=== PATIENT | female | born 1960 | race Caucasian/White ===

== ENCOUNTER → 2023-08-04 08:08 | Outpatient (REF) | payer BC, SELFPAY | LOC: RAD 08:08 | PROVIDERS: ATTENDING PHYSICIAN Family Medicine | DX: Z91.89 Other specified personal risk factors, not elsewhere classified (principal); N18.31 Chronic kidney disease, stage 3a; Z87.81 Personal history of (healed) traumatic fracture | CPT/HCPCS: 77080 ==

== ENCOUNTER → 2024-02-29 14:08 | Outpatient (REF) | payer BC, SELFPAY | LOC: WDC 14:08 | PROVIDERS: ATTENDING PHYSICIAN Family Medicine | DX: Z12.31 Encounter for screening mammogram for malignant neoplasm of breast (principal) | CPT/HCPCS: 77063; 77067 ==

== ENCOUNTER 2024-08-16 20:17 | Inpatient (IN) | payer BC, SELFPAY ==
[2024-08-16] VITALS (7 sets, daily range): BP systolic 123–163; BP diastolic 78–93; BMI 30.3
[2024-08-16 17:10] LABS: % Basophils 0.3 % (0-2); % Eosinophils 1.3 % (0-6); % Immature Granulocytes 0.2 % (0-0.5); % Lymphocytes 18.3 % (20.5-51.1); % Monocytes 6.2 % (1.7-9.3); % Neutrophils 73.7 % (42.2-75.2); Absolute Eosinophils 0.1 10^3/uL (0-0.7); Absolute Lymphocytes 1.9 10^3/uL (1.2-3.4); Absolute Monocytes 0.6 10^3/uL (0.1-0.6); Absolute Neutrophils 7.5 10^3/uL (1.4-6.5); Hematocrit 39.1 % (37.0-47.0); Hemoglobin 12.6 g/dL (12.0-16.0); Mean Corp Hgb Conc. 32.2 g/dL (33.0-37.0); Mean Corpuscular Volume 86.9 fL (81.0-99.0); Mean Platelet Volume 11.4 fL (7.4-10.4); Nucleated Red Blood Cells % 0 %; Platelet Count 201 10^3/uL (130-400); Red Cell Dist. Width 13.9 % (11.5-14.5); White Blood Cell Count 10.2 10^3/uL (4.8-10.8)
[2024-08-16 17:21] LABS: PT 13.5 Sec (11.4-14.6)
[2024-08-16 17:22] LABS: APTT 28.9 Sec (23.4-35.0)
[2024-08-16 17:32] LABS: ALT (SGPT) 18 U/L (0-35); AST (SGOT) 21 U/L (14-36); Albumin 4.5 g/dl (3.5-5.0); Alkaline Phosphatase 138 U/L (38-126); Blood Urea Nitrogen 15 mg/dl (7-17); Calcium 9.6 mg/dl (8.4-10.2); Carbon Dioxide 27 mmol/L (22-30); Chloride 104 mmol/L (98-107); Glucose 142 mg/dl (70-99); Potassium 4.1 mmol/L (3.5-5.1); Sodium 143 mmol/L (135-145); Total Bilirubin 0.5 mg/dl (0.2-1.3); Total Protein 7.8 g/dl (6.3-8.2); eGFR 56.46
[2024-08-16 17:38] LABS: Troponin I < 0.012 ng/ml
--- NOTE | 2024-08-16 19:04 | ED.GENMED ---
History of Present Illness
General
Chief Complaint: Abnormal Lab Value
Source: patient
Exam Limitations: none
Time Seen by Provider: 08/16/24 18:27
Nursing documentation reviewed up to this point in time: agreed with
History of Present Illness
History of Present Illness:
Patient sent to ED by PCP to r/o PE. She states she had right sided chest pain approx 2 weeks ago that lasted for 2 days and then resolved. A few days ago she woke with sharp right sided chest pain. Has had right chest discomfort since. States
she went for a run yesterday and was unable to run at all due to pain. She was seen by PCP today for routine visit and was advised tocome to ED. No prior history of DVT or PE. No known risk factors for PE/DVT
Past History
Past History
ED Past Medical History: HTN, Hypercholesterolemia and Psychiatric (Bipolar disorder)
ED Past Surgical History: Orthopedic
Social History
Tobacco: Non-smoker
Alcohol: None
Drug: None
Personal:
Review of Systems
Review of Systems
Allergies reviewed?: Yes
All Other Systems: ROS reviewed and negative except as documented in HPI and ROS
Constitutional: Reports no symptoms
EENT: Reports no symptoms
Respiratory: Reports other (pain with deep breathing)
Cardiac: Reports other (Right sided chest pain)
ABD/GI: Reports no symptoms
: Reports no symptoms
Musculoskeletal: Reports no symptoms
Skin: Reports no symptoms
Neurological: Reports no symptoms
Psychiatric: Reports no symptoms
Phy Exam
General Physical Exam
General Presentation: mild distress
General age: appears stated age
General Skin: warm and dry
General Habitus: normal
General Mental: alert
Cardiovascular Exam
Cardiovascular Exam: regular rate/rhythm and no edema
Pulmonary Exam
Pulmonary Exam: lungs clear and no respiratory distress
Musculoskeletal Exam
Musculoskeletal Exam: full ROM, no edema and neuro vasc intact
Skin Exam
Skin Exam: normal color, warm/dry and no rash
Psychiatric Exam
Psychiatric Exam: normal mood/affect
Course
Orders/Labs/Results
Orders:
Orders
08/16/24 Dinner
Regular
At Your Request: Full Participation
08/16/24 16:54
EKG [Electrocardiogram (*1)] Urgent
Reason for Study: Chest Pain
08/16/24 16:55
EKG- Treatment ONCE
08/16/24 17:00
CT Chest PE Study Urgent
Comment:
Reason For Exam: R sided CP with inspiration, elevated D-dimer
08/16/24 17:03
Complete Blood Count/With Diff Urgent
Comprehensive Metabolic Panel Urgent
PTT Urgent
Prothrombin Time Urgent
Troponin I Urgent
08/16/24 19:03
Heparin 7,000 units IV NOW STA
Nursing to Place Non Medication Order As Directed
Physician Order: PTT 6 hours after initial start of Heparin infusion
Above order entered?: Yes
08/16/24 19:15
Heparin 91805 Units/250 ml 25,000 units in 250 ml IV PER PROTOCOL
Weight to be used for heparin protocol in kilograms (kg):: 87.6
Protocol:: DVT/PE
PTT Goal Range to be used:: PTT 73 to 111 seconds
Order type:: Initial
INITIAL Infusion Dose (UNITS/KG/hr) & then follow protocol:: 18 units/kg/hr
Infusion Dose in UNITS/hr & then follow protocol (UNITS/hr):: 1,600
INFUSION RATE in mL/hr & then follow protocol (mL/hr):: 16
For DVT/PE algorithm, re-bolus for low PTT?: Yes
PTT less than or equal to 64 seconds:: Re-bolus 80 units/kg (max 10,000units). Increase by 400 units/hr
(+ 4mL/hr)
PTT 64.1 to 72.9 seconds:: Re-bolus 40 units/kg (max 5,000 units). Increase by 200 units/hr
(+ 2mL/hr)
PTT 73 to 111 seconds:: Target Range. No change in rate.
PTT 111.1 to 130.9 seconds:: Decrease rate by 200 units/hr (- 2 mL/hr)
PTT 131 to 199.9 seconds:: HOLD for 1 hr. Then decrease by 300 units/hr (- 3mL/hr)
PTT greater than or equal to 200 seconds:: HOLD for 2 hrs & Notify Provider. Then decrease by 400 units/hr
(- 4mL/hr)
Lab follow-up:: Each change, PTT q6h until 2 consecutive are therapeutic. Then
PTT daily.
08/16/24 19:44
Admit/Transfer Patient As Directed
Co-Sign Provider:
Level of Care: Inpatient admission
Assign to:: Telemetry
Physician / Group: hospitalist
Diagnosis: Pulmonary embolism
Reason for Telemetry: Other
Other Reason for Telemetry: Bilateral pulmonary embolism
Date to Stop Telemetry: 08/18/24
Time to Stop Telemetry: 11:00
Reason for Hospitalization: PE
Expected length of stay greater than two midnights?: Yes
ELOS- Estimated Length of Stay in days: 2
I certify the patient meets the requirements for IP care: Yes
08/16/24 19:45
PRN Pain Medication Management As Directed
May give lesser potent ordered pain med per pt: Yes
preference::
Protocol:: Medication orders for pain may be administered in a
manner that supports deferring to patient preference
when the pt is:
- Requesting an ordered lesser potent pain medication.
Least to most potent pain medications are defined
as: acetaminophen < NSAID < tramadol < opioids
(morphine, oxycodone, hydromorphone).
- Requesting a lesser dose of the same medication IF
ORDERED.
- Requesting a less intrusive route of administration
if both routes are prescribed by the provider (PO <
IV).
08/16/24 19:46
Code Status As Directed
Resuscitation Status: Full Code
08/16/24 20:02
Heparin 7,000 units IV PRN PRN
08/16/24 20:03
Heparin 3,500 units IV PRN PRN
08/16/24 20:41
COVID-19 Antigen Stat
Source: Nasal Swab
08/16/24 21:40
Acetaminophen [Tylenol] 1,000 mg PO Q6HPRN PRN
Docusate Sodium [Colace] 100 mg PO BID PRN
HYDROmorphone [Dilaudid] 0.5 mg IV Q4HPRN PRN
Ondansetron Injectable [Zofran] 4 mg IV Q6HPRN PRN
08/16/24 21:40
Heparin Protocol- PTT Orders As Directed
PTT per Heparin protocol: -Obtain CBC and baseline PTT - if not already collected.
-Obtain PTT 6 hours from start of infusion. Then, every 6 hours until 2 consecutive
PTT's are therapeutic. Then, PTT Daily.
-With each rate change, obtain PTT every 6 hours until 2 consecutive PTT's are
therapeutic. Then, PTT Daily.
Activity As Directed
Activity Level: With Assistance
Bladder Scan As Directed
Follow Bladder Retention/Intermittent Cath Algorithm?: Yes
Frequency: Per Retention Algorithm
Comment: as per intermittent urinary catheter algorithm
Bladder Scan As Directed
Follow Bladder Retention/Intermittent Cath Algorithm?: Yes
PRN if no void in __ hours: 6
Frequency: Per Retention Algorithm
If Bladder Scan Result >: 400
then:: Straight cath
Intake/ Output As Directed
Frequency: Per unit guidelines
Notify MD As Directed
Notify physician if: PTT is greater than or equal to 200.
Straight Cath As Directed
Frequency: Per Retention Algorithm
Additional Instructions: as per intermittent urinary catheter algorithm
Straight Cath As Directed
Frequency: Per Retention Algorithm
Additional Instructions: straight cath as needed per acute urinary retention algorithm for 24 hrs
Additional Instructions: for bladder scan greater than 400 mL
Vital Signs As Directed
Frequency: Per unit guidelines
Pulse Ox/cont/shift [RESP] Routine
Quantity: 1
Special Instructions: check O2 Sat Q8 hours and at each change in oxygen liter flow and FiO2
08/16/24 22:00
Quetiapine Fumarate [Seroquel] 200 mg PO HS
08/17/24 02:15
PTT Urgent
Comment: heparin gtt
08/17/24 06:00
Glycohemoglobin (HgbA1c) IN AM
08/17/24 08:00
Amlodipine [Norvasc] 2.5 mg PO DAILY
Pantoprazole [Protonix] 40 mg PO DAILY
Rosuvastatin Calcium [Crestor] 5 mg PO DAILY
Venlafaxine Extended Release [Effexor Xr] 150 mg PO DAILY
08/18/24 06:00
Complete Blood Count/No Diff Q2D
Comment: notify provider: Platelet count < 130,000 or decrease by 50% from baseline
08/18/24 11:00
DC Protocol for Telemetry ONCE
08/20/24 06:00
Complete Blood Count/No Diff Q2D
Comment: notify provider: Platelet count < 130,000 or decrease by 50% from baseline
08/22/24 06:00
Complete Blood Count/No Diff Q2D
Comment: notify provider: Platelet count < 130,000 or decrease by 50% from baseline
08/24/24 06:00
Complete Blood Count/No Diff Q2D
Comment: notify provider: Platelet count < 130,000 or decrease by 50% from baseline
08/26/24 06:00
Complete Blood Count/No Diff Q2D
Comment: notify provider: Platelet count < 130,000 or decrease by 50% from baseline
08/28/24 06:00
Complete Blood Count/No Diff Q2D
Comment: notify provider: Platelet count < 130,000 or decrease by 50% from baseline
08/30/24 06:00
Complete Blood Count/No Diff Q2D
Comment: notify provider: Platelet count < 130,000 or decrease by 50% from baseline
09/01/24 06:00
Complete Blood Count/No Diff Q2D
Comment: notify provider: Platelet count < 130,000 or decrease by 50% from baseline
Abnormal Lab Results
08/16/24
17:03
MCHC 32.2 L g/dL
(33.0-37.0)
MPV 11.4 H fL
(7.4-10.4)
Absolute Neuts (auto) 7.5 H 10^3/uL
(1.4-6.5)
Lymphocytes % 18.3 L %
(20.5-51.1)
Creatinine 1.1 H mg/dL
(0.6-1.0)
Glucose 142 H mg/dl
(70-99)
Alkaline Phosphatase 138 H U/L
(38-126)
08/16/24 17:03
08/16/24 17:03
Vital Signs
Initial and Last Documented VS:
Initial Vital Signs
Temp Pulse Resp BP Pulse Ox
98.5 F 79 18 163/93 98
08/16/24 16:49 08/16/24 16:49 08/16/24 16:49 08/16/24 16:49 08/16/24 16:49
Last Documented Vital Signs
Temp Pulse Resp BP Pulse Ox
98.3 F 73 20 138/83 95
08/16/24 19:05 08/16/24 22:00 08/16/24 22:00 08/16/24 22:00 08/16/24 21:15
*Radiology
Radiology exam reviewed: radiology read reviewed
*Pulse Oximetry
Patient hypoxic: no
*Critical Care Note
Total Time (30-74mins, 75-104mins- exclusive of procedures): Not Applicable
Update Note
Update Note:
Patient to ED wtih complaint of right sided chest pain. Ddimer elevated at 1.9 on outpatient testing[address] CT reveals bilateral PE segmental/subsegmental. No right hear strain. Suspected developing right uypper lobe infarct. Case was discussed
with dr. owens. IV heparin initiated in dept. Pulse ox remains 98% RA, BP 150/91, HRR at 88. Will admit to hospitalist service. Findings discussed with patient, she is agreeable to plan.
ED Attending Note
-
Portions of this chart may have been created with voice recognition software.� Occasional wrong word or��sound alike� substitutions may have occurred due to the inherent limitations of voice recognition software.
Discharge Plan
Departure
Patient Disposition: Admit
Date of Disposition: 08/16/24
Time of Disposition: 19:13
Presentation/result/management discussed w/ accepting MD/DO: Hospitalist
Patient with high blood pressure during this ER visit?: Yes
Condition: Fair
Covid-19: Not Applicable
Discharge Problem:
Bilateral pulmonary embolism
Interventions
Interventions:
*Risk Screen - Suicide Last Done: 08/16/24 16:49
*General Assessment Last Done: 08/16/24 16:49
*Neglect/Abuse Screening Last Done: 08/16/24 16:49
*ED- Fall Risk Assessment Last Done: 08/16/24 19:02
*ED COVID-19 Vaccine History Last Done: 08/16/24 16:49
--- NOTE | 2024-08-16 19:41 | HPS.HSE ---
Family Physician
-
Family Physician: Galileo Ayala
Chief Complaint
-
Abnormal lab values
History of Present Illness
This is a 63-year-old female with past medical history significant for hyperlipidemia, hypertension, obstructive sleep apnea sent in by PCP to rule out thromboembolism.
she has had right sided chest pain approx 2 weeks ago that lasted for 2 days and then resolved. Recurrent right sided chest pain staring 2 days ago. Worse with physical activity. Now persistent right chest discomfort. Unable to run due to pain.
She denies any recent travel. She denies any prolonged immobilization. She is retired but fairly active. She has no recent cough cold or flulike symptoms. She has no family history of venous thromboembolism.
She denies any bleeding diathesis. No history of melena or hematochezia or otherwise GI bleed.
In the emergency department she was afebrile blood pressure was 150/90 with a pulse of 79 and satting 95% on room air. ECG shows normal sinus rhythm at a rate of [address] or T wave changes. Troponin was negative. CBC was normal.
Electrolytes BUN/creatinine were normal.
CT of the chest with PE protocol shows: 1. There are bilateral pulmonary emboli. There is embolus within the distal truncus anterior extending into the segmental right upper lobe pulmonary arteries. There are additional segmental/subsegmental
pulmonary emboli within the right lower and left upper lobes. Subsegmental pulmonary emboli within left lower lobe. There is no evidence of right heart strain.
2. There is a 2.4 cm opacity within the lateral right upper lobe favored to represent a developing pulmonary infarction.
3. Small right and trace left pleural effusions with adjacent bibasilar atelectasis.
Medical History
Past Medical History
Past Medical History: Reports HTN, Hypercholesterolemia and Other (Obstructive sleep apnea)
Additional Past Medical History:
History of diverticulosis
Past Surgical History: Reports Orthopedic
Social History
Tobacco: Non-smoker
Alcohol: None
Drug: None
Personal:
Living: With Family
Employment: Retired
Family History
Family History: Not pertinent
Allergies / Home Medications
Allergies reflects when Allergies were last updated in [employer]
Home Medications with original date entered in [employer]
Allergy/Medication List:
Allergies
Allergy/AdvReac Type Severity Reaction Status Date / Time
erythromycin base Allergy Unknown Rash Verified 08/16/24 16:53
[Erythromycin Base]
Penicillins Allergy Rash Verified 08/16/24 16:53
Home Medications
venlafaxine 150 mg capsule,extended release 24 hr 150 mg PO DAILY 03/19/19
acetaminophen 500 mg tablet (Tylenol Extra Strength) 1,000 mg PO Q6HPRN PRN mild pain 08/16/24
amlodipine 2.5 mg tablet 2.5 mg PO DAILY 08/16/24
quetiapine 200 mg tablet 200 mg PO HS 08/16/24
quetiapine 50 mg tablet 50 mg PO HS 08/16/24
rosuvastatin 5 mg tablet 5 mg PO DAILY 08/16/24
Review of Systems
-
Constitutional: Reports No Symptoms
EENT: Reports No Symptoms
Respiratory: Reports No Symptoms
Cardiac: Reports Chest Pain
Abdomen/GI: Reports No Symptoms
: Reports No Symptoms
Musculoskeletal: Reports No Symptoms
Skin: Reports No Symptoms
Neurological: Reports No Symptoms
Endocrine: Reports No Symptoms
Psych: Reports No Symptoms
Physical Exam
Vital Signs
Vital Signs
Temp Pulse Resp BP Pulse Ox
98.3 F 79 18 150/91 95
08/16/24 19:05 08/16/24 16:49 08/16/24 16:49 08/16/24 19:02 08/16/24 19:03
Physical Exam
General: Well Developed, Well Nourished, No Apparent Distress and Comfortable
HEENT: NormoCephalic, Anicteric, Moist mucous membranes and Atraumatic
Respiratory: Clear
Cardiac: S1/S2 and Regular Rhythm
Breast: Deferred by me
GI: Soft, Non Tender, Non Distended and Normal Bowel Sounds
Rectal: Deferred by Provider
Genito-urinary: Deferred by me
Musculoskeletal: No Clubbing, No Cyanosis and No Edema
Skin: Warm
Neuro: AO x 3 and Nonfocal/grossly intact
Hematologic/Lymphatic: No Lymphadenopathy
Psych: Calm
Laboratory Results
-
08/16/24 17:03
08/16/24 17:03
Laboratory Results
PT 13.5 Sec (11.4-14.6) 08/16/24 17:03
INR 1.00 08/16/24 17:03
APTT 28.9 Sec (23.4-35.0) 08/16/24 17:03
Total Bilirubin 0.5 mg/dl (0.2-1.3) 08/16/24 17:03
AST 21 U/L (14-36) 08/16/24 17:03
ALT 18 U/L (0-35) 08/16/24 17:03
Alkaline Phosphatase 138 U/L (38-126) H 08/16/24 17:03
Troponin I < 0.012 ng/ml 08/16/24 17:03
Data Reviewed
-
CT Scan: Report Reviewed by me
Medical Tests (Nuc Med, Echo, EKG etc): Image Personally Visualized and interpreted
Lab Data: Labs Reviewed by me
Old Records: Reviewed
Impression/Plan
-
IMPRESSION:
60-year-old female with history of hypertension and hyperlipidemia who presents to the emergency department for evaluation of left-sided chest pain and found to have bilateral PEs. He appears to be unprovoked. She is hemodynamically stable. She
is not on oxygen. There is no RV strain on the CT scan. Troponin is negative. ECG is unremarkable.
PLAN:
PE - Bilateral PEs but otherwise low risk with no known provoking factors.
- admit to telemetry
- check covid 19
- continue heparin gtt PE protocol
- pain control and anti emetics
- continue patient's home medications
- given lack of provoking factors, will consult hematology
Code - Status - Full Code
[2024-08-16] MEDS: HEPARIN 25000 UNITS/250 ML IV (20:06)
[2024-08-16] MEDS: HEPARIN 7000 UNITS IV (20:07)
[2024-08-16 21:04] LABS: COVID-19 Antigen Negative (Negative)
[2024-08-16] MEDS: SEROQUEL 200 MG PO (23:28)
[2024-08-16] MEDS: SEROQUEL 50 MG PO (23:28)
[2024-08-17] VITALS (8 sets, daily range): BP systolic 103–165; BP diastolic 56–101; BMI 29.2
[2024-08-17 04:00] LABS: APTT 189.6 Sec (23.4-35.0)
--- NOTE | 2024-08-17 07:58 | W.PN.HOSP.TC ---
Today's Communication/Plan
-
Se PN
Assessment / Plan
Assessment / Plan
yo F with PMHX of HLD, HTN, JUANY, bipolar sent from PCP with elevated ddimer drawn due to 2 week of chest pain uder R rib cage on inhale and found bilateral PE with 2.4cm opacity in RUL concerning for lung infarction.
A/P:
#Pleurisy 2/2 Acute unprovoked bilateral PE
Heparin drip for 24-48h then DOAC
US LE
Echo
Pulm consult
Patient is up-to day on colonoscopy, PAP and mammogram without acute findings as per patient words
No precipitating factors found
Needs outpatient hematology for hypercoagulable w/u
Possibly needs indefinite anticoagulation
Assess for home O2
EKG without acute ischemia, inital trop WNL - repeat to complete series
#Chronic minimal alk.phos elevation
since [address] - no significant biliary pathology, possibly 2/2 sludge in gall bladder
#Hepatic cyst
#Splenule
no follow up advised
#Bipolar d/o
#HLD
#Essential HTN
JUANY
cont come meds
DVT ppx hep drip
Full code
I have spent at least 56 min reviewing chart, test results, communication with consultants and providing direct patient care
Anticipated Discharge: 24 - 48 hours
Subjective/Interval History
-
Date of Service: August 17, 2024
Objective Data
-
Labs:
Laboratory Results
08/17/24 08/17/24 08/17/24
02:32 07:14 11:00
APTT 189.6 H* Pending
Total Bilirubin Pending
AST Pending
ALT Pending
Alkaline Phosphatase Pending
Vital Signs:
Vital Signs
Temp Pulse Resp BP Pulse Ox
98.7 F 76 20 105/72 89
08/17/24 05:07 08/17/24 05:04 08/17/24 05:04 08/17/24 05:04 08/17/24 05:04
Review of Systems
-
History Source: Patient
All other systems: Reviewed and negative
Respiratory: Reports Pleurisy
Physical Exam
-
General: No Apparent Distress
HEENT: Normocephalic
Respiratory: Clear to Auscultation
Cardiac: Regular Rhythm
GI: Soft, Nontender and Nondistended
Musculoskeletal: No Clubbing, No Cyanosis and No Edema
Neuro: Awake, Alert, Oriented and AO x 3
Psych: Calm
[2024-08-17] MEDS: PROTONIX 40 MG PO (09:58)
[2024-08-17] MEDS: NORVASC 2.5 MG PO (09:58)
[2024-08-17 10:22] LABS: Glycohemoglobin (HgbA1c) 6.1 % (4.0-5.6)
[2024-08-17] MEDS: EFFEXOR XR 150 MG PO (11:05)
[2024-08-17] MEDS: CRESTOR 5 MG PO (11:06)
[2024-08-17 11:11] LABS: APTT 60.4 Sec (23.4-35.0)
[2024-08-17 11:13] LABS: Troponin I 0.015 ng/ml
[2024-08-17 11:41] LABS: ALT (SGPT) 17 U/L (0-35); AST (SGOT) 22 U/L (14-36); Albumin 4.2 g/dl (3.5-5.0); Alkaline Phosphatase 142 U/L (38-126); Direct Bilirubin 0.2 mg/dl (0.0-0.4); Total Bilirubin 0.5 mg/dl (0.2-1.3); Total Protein 7.5 g/dl (6.3-8.2)
[2024-08-17] MEDS: HEPARIN 7000 UNITS IV (11:51)
[2024-08-17] MEDS: HEPARIN 25000 UNITS/250 ML IV (13:27)
--- NOTE | 2024-08-17 13:54 | CON.PUL ---
Consultation
Consultation Request
Date/Time Consultation Requested: 08/17/2024
Date/Time Consultation Performed: 08/17/2024
Requesting Provider: Dr. Walsh
Performing Provider: Dr. Valdez Harvey
Reason for Consultation: Pulmonary embolism-pulmonary infarct
Medical History
-
History of Present Illness:
63-year-old woman with past medical history significant for hyperlipidemia, hypertension, obstructive sleep apnea sent from primary care office for evaluation of possible pulmonary embolism.
Reported chest pain on the right side for approximately 2 weeks that lasted for about 2 days and then resolved.
About 2 days ago the pain was recurrent.
Was worse with physical activity.
Pain was more pleuritic in nature.
Unable to exercise due to significant pain.
-
She denies any trauma. Recent travels. Denies prolonged immobilization.
In general she is fairly active.
Denies any signs or symptoms significant for infection.
Denies prior history of pulmonary embolism or DVT.
Denies prior family history.
Denies history of cancer.
CT chest found to have bilateral pulmonary emboli. Also possible right upper lobe peripheral airspace disease suggestive of pulmonary infarct.
Past Medical History
Past Medical History: Other (See assessment and plan)
Social History
Tobacco: Non-smoker
Alcohol: None
Drug: None
Personal:
Living: With Family
Employment: Retired
Family History
Family History: Reviewed & Not Pertinent
Allergies / Home Medications
Allergies
Allergy/AdvReac Type Severity Reaction Status Date / Time
erythromycin base Allergy Rash Verified 08/16/24 19:59
[Erythromycin Base]
Penicillins Allergy Rash Verified 08/16/24 16:53
Home Medications
�Medication �Instructions �Recorded �Confirmed �Last Taken �Type
venlafaxine 150 mg 150 mg PO DAILY 03/19/19 08/16/24 08/16/24 History
capsule,extended release 24 hr
acetaminophen 500 mg tablet 1,000 mg PO Q6HPRN PRN mild pain 08/16/24 08/16/24 08/15/24 History
(Tylenol Extra Strength)
amlodipine 2.5 mg tablet 2.5 mg PO DAILY 08/16/24 08/16/24 08/16/24 History
quetiapine 200 mg tablet 200 mg PO HS 08/16/24 08/16/24 08/15/24 History
quetiapine 50 mg tablet 50 mg PO HS 08/16/24 08/16/24 08/15/24 History
rosuvastatin 5 mg tablet 5 mg PO DAILY 08/16/24 08/16/24 08/16/24 History
Review of Systems
-
History Source: Patient
All other systems: Negative unless noted
Vitals / Labs / Diagnostic Testing
Vital Signs
Temp Pulse Resp BP Pulse Ox
98.8 F 76 20 120/81 94
08/17/24 08:00 08/17/24 12:36 08/17/24 12:36 08/17/24 12:36 08/17/24 12:36
Lab Data
08/16/24 17:03
08/16/24 17:03
Laboratory Results
08/16/24 08/17/24 08/17/24
17:03 02:32 10:38
PT 13.5
INR 1.00
APTT 28.9 189.6 H* 60.4 H
Diagnostic Testing:
Physical Exam
-
HEENT: Normocephalic
Cardiovascular: S1/S2
Respiratory: Non-Labored Respirations
GI: Soft and Non Distended
Neurology: Awake, Alert and No Motor Deficits
Skin: Warm
General: Comfortable
Assessment
-
63-year-old woman without significant past medical history. Admitted to the hospital complaining of 2-week right-sided pleuritic type chest pain. Subsequently shortness of breath. Sent from the primary care office for evaluation of pulmonary
embolism. She had confirmed bilateral pulmonary embolism. Distal DVT. Pulmonary infarct on the right. We were consulted on 08/17/2024 for evaluation.
Acute unprovoked bilateral pulmonary embolism/occlusive thrombus in the left peroneal vein. 08/17/2024
Pleuritic type chest pain-pulmonary infarct right side
Conditions present prior admission:
Hypertension
Hypercholesterolemia
Obstructive sleep apnea
Assessment and plan:
Unprovoked pulmonary embolism-right sided pulmonary infarct with bilateral pleural effusions related to embolism.
Denies family history of clots
No personal history of clots
Denies history of cancer
No provoking events
Not on hormonal therapy
On her usual state of health-very active. She likes to ski
Recommend sex/age-appropriate cancer screening
Symptoms started about 2 weeks ago-with right-sided pleuritic type chest pain and pain.
-
CT angiogram 08/16/2024-reviewed.
1. There are bilateral pulmonary emboli. There is embolus within the distal truncus anterior extending into the segmental right upper lobe pulmonary arteries. There are additional segmental/subsegmental pulmonary emboli within the right lower and
left upper lobes. Subsegmental pulmonary emboli within left lower lobe. There is no evidence of right heart strain.
2. There is a 2.4 cm opacity within the lateral right upper lobe favored to represent a developing pulmonary infarction.
3. Small right and trace left pleural effusions with adjacent bibasilar atelectasis.
-
Hemodynamically stable
Not tachycardic
Not requiring oxygen supplementation
Normal troponins
EKG reviewed without RV dysfunction
Echocardiogram pending.
-
Continue heparin drip for today. Follow PTT.
Can consider transition to oral anticoagulants in the next 24 hours if continues to be hemodynamically stable.
Likely will need lifelong anticoagulation.
Recommend outpatient hematology evaluation.
-
Patient will need radiographic follow-up regarding her pulmonary infarct.
Recommend repeating CT chest in 3 months from now.
-
IS-as able.
PRN analgesia for pleuritic chest pain.
PRN oxygen maintain pulse ox>90%
-
Outpatient pulmonary follow-up.
-
Will follow
[2024-08-17] MEDS: TYLENOL 1000 MG PO (18:36)
[2024-08-17 19:06] LABS: Troponin I < 0.012 ng/ml
[2024-08-17] MEDS: DILAUDID 0.5 MG IV (19:41)
[2024-08-17 19:52] LABS: APTT 198.7 Sec (23.4-35.0)
[2024-08-17] MEDS: SEROQUEL 200 MG PO (21:18)
[2024-08-17] MEDS: SEROQUEL 50 MG PO (21:18)
[2024-08-18] VITALS (7 sets, daily range): BP systolic 101–129; BP diastolic 51–71
[2024-08-18] MEDS: DILAUDID 0.5 MG IV ×2 (01:52→05:33)
[2024-08-18 03:20] LABS: Hematocrit 34.8 % (37.0-47.0); Hemoglobin 11.3 g/dL (12.0-16.0); Mean Corp Hgb Conc. 32.5 g/dL (33.0-37.0); Mean Corpuscular Hgb 27.8 pg (27.0-31.0); Mean Corpuscular Volume 85.7 fL (81.0-99.0); Mean Platelet Volume 11.3 fL (7.4-10.4); Platelet Count 178 10^3/uL (130-400); Red Blood Cell Count 4.06 10^6/uL (4.20-5.40); Red Cell Dist. Width 13.5 % (11.5-14.5); White Blood Cell Count 8.8 10^3/uL (4.8-10.8)
[2024-08-18 03:31] LABS: APTT 79.1 Sec (23.4-35.0)
--- NOTE | 2024-08-18 04:16 | PTCARENOTE ---
At approx 1920, patient was sitting on side of bed complaining of constant sharp right sided chest pain. She had Tylenol an hour ago for intermittent pain but it's worse and constant now. She feels like she can't get enough air. Vitals are BP
165/101, HR 82, Pulse ox 97% room air, RR 18, temp 98.3. DIRECTOR OF STRATEGIC SOURCING made aware. Started on 2L oxygen via nasal cannula. PRN Dilaudid given.
[2024-08-18] MEDS: TYLENOL 1000 MG PO ×2 (05:01→17:31)
[2024-08-18] MEDS: EFFEXOR XR 150 MG PO (09:12)
[2024-08-18] MEDS: CRESTOR 5 MG PO (09:12)
[2024-08-18] MEDS: NORVASC 2.5 MG PO (09:12)
[2024-08-18] MEDS: PROTONIX 40 MG PO (09:12)
[2024-08-18] MEDS: HEPARIN 25000 UNITS/250 ML IV (09:16)
--- NOTE | 2024-08-18 11:50 | W.PN.HOSP.TC ---
Today's Communication/Plan
-
with worsening pain -0 keep monitoring
repeat imaging in AM to r/o development of complications
Assessment / Plan
Assessment / Plan
yo F with PMHX of HLD, HTN, JUANY, bipolar sent from PCP with elevated ddimer drawn due to 2 week of chest pain uder R rib cage on inhale and found bilateral PE with 2.4cm opacity in RUL concerning for lung infarction.
A/P:
#Pleurisy 2/2 Acute unprovoked bilateral PE and LLE acute DVT
#Acute hypoxic respiratory insufficiecny
Heparin drip for 24-48h then DOAC
Echo: Normal left ventricular size, wall thickness and systolic function. No regional wall motion abnormalities are seen. LV ejection fraction is 55-60% by visual assessment. Normal diastolic function. Normal right ventricular size and function.
No significant valvular disease.
Pulm consult: ouptatient follow up
Patient is up-to day on colonoscopy, PAP and mammogram without acute findings as per patient words
Possibly needs indefinite anticoagulation
will need home O2 - CM notified
EKG without acute ischemia, trop WNL
Hematology referral provided for outpatient hypercoagulability w/u
#Chronic minimal alk.phos elevation
since [address] - no significant biliary pathology, possibly 2/2 sludge in gall bladder
#Hepatic cyst
#Splenule
no follow up advised
#Bipolar d/o
#HLD
#Essential HTN
JUANY
cont come meds
DVT ppx hep drip
Full code
I have spent at least 36 min reviewing chart, test results, communication with consultants and providing direct patient care
Anticipated Discharge: 24 - 48 hours
Subjective/Interval History
-
Date of Service: August 18, 2024
Objective Data
-
Labs:
Laboratory Results
08/18/24 08/18/24
03:12 10:08
WBC 8.8
Hgb 11.3 L
Hct 34.8 L
Plt Count 178
APTT 79.1 H 48.0 H
Vital Signs:
Vital Signs
Temp Pulse Resp BP Pulse Ox
98.4 F 70 16 129/71 93
08/18/24 11:00 08/18/24 11:00 08/18/24 11:00 08/18/24 11:00 08/18/24 11:00
I&O
08/17/24 08/18/24 08/19/24
06:59 06:59 06:59
Intake Total 960 / 960
Balance 960 / 960
Review of Systems
-
History Source: Patient
All other systems: Reviewed and negative
Respiratory: Reports Pleurisy (worse pain)
Physical Exam
-
General: No Apparent Distress
HEENT: Normocephalic
Respiratory: Clear to Auscultation
GI: Soft, Nontender and Nondistended
Musculoskeletal: No Clubbing, No Cyanosis and No Edema
Neuro: Awake, Alert, Oriented and AO x 3
Psych: Calm
--- NOTE | 2024-08-18 12:40 | CM ---
CM reviewed chart, patient seen with spouse, initial assessment completed. Patient resides with her spouse in a multiple story home, two steps to enter, elevator in home. Patient denies use of DME, VN/SNF. Patient currently wearing O2, reports she
will need oxygen upon discharge. Patient confirms PCP Galileo Ayala, pharmacy [facility], utilizes [facility] for medications/coverage. Patient provided with [employer] coupon. CM will set up O2 for when patient is ready for d/c. CM
will continue to follow for all discharge planning needs.
Plan; home with new O2
[2024-08-18] MEDS: HEPARIN 7000 UNITS IV (12:43)
--- NOTE | 2024-08-18 12:46 | W.PN.PUL3 ---
Today's Communication / Plan
-
Continue heparin
Consider transition to oral agent in a.m.
PA lateral chest x-ray in a.m. to confirm no worsening of pleural effusion
Will require outpatient follow-up CT chest in 3 months
Check baseline D-dimer
Assessment
-
63-year-old woman without significant past medical history. Admitted to the hospital complaining of 2-week right-sided pleuritic type chest pain. Subsequently shortness of breath. Sent from the primary care office for evaluation of pulmonary
embolism. She had confirmed bilateral pulmonary embolism. Distal DVT. Pulmonary infarct on the right. We were consulted on 08/17/2024 for evaluation.
Acute unprovoked bilateral pulmonary embolism/occlusive thrombus in the left peroneal vein. 08/17/2024
Pleuritic type chest pain-pulmonary infarct right side
Conditions present prior admission:
Hypertension
Hypercholesterolemia
Obstructive sleep apnea
Assessment and plan:
Unprovoked pulmonary embolism-right sided pulmonary infarct with bilateral pleural effusions related to embolism.
Suspect pleurisy is related to pleural involvement, small pleural effusion and infarct
Appears to be comfortable
Doppler positive for left lower extremity DVT
Reviewed at length pathophysiology of thromboembolic disease
Echocardiogram with normal biventricular function, normal PA pressure
Moving forward
Hemodynamically stable
Not tachycardic
Not requiring oxygen supplementation
Normal troponins
EKG reviewed without abnormality
Echocardiogram within normal limits
Continue heparin drip for today. Follow PTT.
Can consider transition to oral anticoagulants in the next 24 hours if continues to be hemodynamically stable.
Not sure whether she would require lifelong anticoagulation given first event
This can be determined as outpatient
Add D-dimer for baseline and follow-up comparisons as outpatient
Patient will need radiographic follow-up regarding her pulmonary infarct.
Recommend repeating CT chest in 3 months from now.
Reviewed with patient, at bedside, primary service and nursing
Will follow
CT angiogram 08/16/2024-reviewed.
1. There are bilateral pulmonary emboli. There is embolus within the distal truncus anterior extending into the segmental right upper lobe pulmonary arteries. There are additional segmental/subsegmental pulmonary emboli within the right lower and
left upper lobes. Subsegmental pulmonary emboli within left lower lobe. There is no evidence of right heart strain.
2. There is a 2.4 cm opacity within the lateral right upper lobe favored to represent a developing pulmonary infarction.
3. Small right and trace left pleural effusions with adjacent bibasilar atelectasis.
Subjective Data
-
Date of Service:
Date of Service: August 18, 2024
Subjective:
Patient had worsening pain overnight, received 3 doses of Dilaudid. It is pleuritic in nature. Appears to be improved today but still bothersome. Denies lightheadedness, dizziness. Shortness of breath improved and not present at rest.
at bedside. Patient appears comfortable at this time
Objective Data
Data Reviewed
Vital Signs / I&O / Oxygen:
Vital Signs
Temp Pulse Resp BP Pulse Ox
98.4 F 70 16 129/71 93
08/18/24 11:00 08/18/24 11:00 08/18/24 11:00 08/18/24 11:00 08/18/24 11:00
Intake and Output
08/17/24 08/18/24 08/19/24
06:59 06:59 06:59
Intake Total 960 / 960
Balance 960 / 960
SaO2 93
Nasal Cannula flow liters per 2
minute
Physical Exam
General: Comfortable
HEENT: Normocephalic, Anicteric and Moist Mucous Membranes
Cardiovascular: S1-S2, Regular Rhythm, Murmur (n) and Rub (n)
Respiratory: Wheeze (n), Crackles (n), Rhonchi (n) and Non-Labored Respirations
GI: Soft, Non Distended and Non Tender
Neurology: Awake, Alert and No Motor Deficits
Skin: Cyanosis (n), Jaundice (n) and Rash (n)
Labs/Micro/Reports
Lab Data
08/18/24 03:12
08/16/24 17:03
Laboratory Results
08/17/24 08/17/24 08/18/24
18:37 19:26 03:12
APTT Cancelled 198.7 H* 79.1 H
08/18/24
10:08
APTT 48.0 H
[2024-08-18 19:00] LABS: APTT 192.7 Sec (23.4-35.0)
[2024-08-18] MEDS: SEROQUEL 50 MG PO (21:41)
[2024-08-18] MEDS: SEROQUEL 200 MG PO (21:41)
[2024-08-19] MEDS: HEPARIN 25000 UNITS/250 ML IV (01:58)
[2024-08-19 02:21] LABS: APTT 106.3 Sec (23.4-35.0)
[2024-08-19 03:23] VITALS: BP 90/56
[2024-08-19 07:00] VITALS: BP 119/56
[2024-08-19 07:13] LABS: % Basophils 0.4 % (0-2); % Eosinophils 4.1 % (0-6); % Immature Granulocytes 0.4 % (0-0.5); % Lymphocytes 27.9 % (20.5-51.1); % Monocytes 7.2 % (1.7-9.3); Absolute Eosinophils 0.3 10^3/uL (0-0.7); Absolute Lymphocytes 1.9 10^3/uL (1.2-3.4); Absolute Monocytes 0.5 10^3/uL (0.1-0.6); Absolute Neutrophils 4.1 10^3/uL (1.4-6.5); Hematocrit 37.5 % (37.0-47.0); Hemoglobin 12.2 g/dL (12.0-16.0); Mean Corp Hgb Conc. 32.5 g/dL (33.0-37.0); Mean Corpuscular Hgb 28.1 pg (27.0-31.0); Mean Corpuscular Volume 86.4 fL (81.0-99.0); Mean Platelet Volume 11.8 fL (7.4-10.4); Nucleated Red Blood Cells % 0 %; Platelet Count 190 10^3/uL (130-400); Red Blood Cell Count 4.34 10^6/uL (4.20-5.40); Red Cell Dist. Width 13.6 % (11.5-14.5); White Blood Cell Count 6.8 10^3/uL (4.8-10.8)
[2024-08-19 07:33] LABS: ALT (SGPT) 22 U/L (0-35); AST (SGOT) 23 U/L (14-36); Albumin 3.8 g/dl (3.5-5.0); Alkaline Phosphatase 130 U/L (38-126); Blood Urea Nitrogen 12 mg/dl (7-17); Calcium 8.8 mg/dl (8.4-10.2); Carbon Dioxide 26 mmol/L (22-30); Chloride 108 mmol/L (98-107); Estimated Creatinine Clearance 58 ml/min; Glucose 112 mg/dl (70-99); Potassium 4.2 mmol/L (3.5-5.1); Sodium 145 mmol/L (135-145); Total Bilirubin 0.3 mg/dl (0.2-1.3); Total Protein 6.7 g/dl (6.3-8.2); eGFR 56.46
[2024-08-19 08:10] LABS: APTT 93.9 Sec (23.4-35.0)
[2024-08-19] MEDS: EFFEXOR XR 150 MG PO (08:33)
[2024-08-19] MEDS: PROTONIX 40 MG PO (08:33)
--- NOTE | 2024-08-19 09:23 | W.PN.PUL3 ---
Addendum entered and electronically signed by Sánchez Tran MD 08/19/24 10:02:
Will repeat ambulatory saturation on room air
Yesterday, patient went to 86% with ambulation requiring 1 L to maintain saturation greater than 90%
Addendum entered and electronically signed by Sánchez Tran MD 08/19/24 09:55:
Creatinine 1.1
Consider checking baseline UA
Patient may benefit from outpatient follow-up blood work, unclear reasoning for renal insufficiency
Defer further workup to primary service, outpatient primary physician
Original Note:
Today's Communication / Plan
-
Transition to oral regimen
Ambulate
Confirmed dosing per discussion with pharmacy, creatinine 1.1, GFR 58
Will require short-term follow-up in the next 4 to 6 weeks with pulmonary
Would require CT chest in 3 months without contrast to confirm resolution of right upper lobe suspected infarct
Age-appropriate cancer screening
Reviewed limitations of the next 2 weeks
Disposition efforts. Hopefully can be discharged later today
Assessment
-
63-year-old woman without significant past medical history. Admitted to the hospital complaining of 2-week right-sided pleuritic type chest pain. Subsequently shortness of breath. Sent from the primary care office for evaluation of pulmonary
embolism. She had confirmed bilateral pulmonary embolism. Distal DVT. Pulmonary infarct on the right. We were consulted on 08/17/2024 for evaluation.
Acute unprovoked bilateral pulmonary embolism/occlusive thrombus in the left peroneal vein. 08/17/2024
Pleuritic type chest pain-pulmonary infarct right side
Conditions present prior admission:
Hypertension
Hypercholesterolemia
Obstructive sleep apnea
Assessment and plan:
Unprovoked pulmonary embolism-right sided pulmonary infarct with bilateral pleural effusions related to embolism.
Suspect pleurisy is related to pleural involvement, small pleural effusion and infarct
Appears to be comfortable, pleurisy improved, currently rated 3/10
Doppler positive for left lower extremity DVT
Reviewed at length pathophysiology of thromboembolic disease
Echocardiogram with normal biventricular function, normal PA pressure
CXR today stable with small right pleural effusion
CT chest ordered by primary service shows right upper lobe nodular abnormality which is presumed, and small right pleural effusion
Moving forward
Hemodynamically stable
Not tachycardic
Not requiring oxygen supplementation
Normal troponins
EKG reviewed without abnormality
Echocardiogram within normal limits
Pleurisy improved
Ambulate
Will transition to oral therapy, reviewed with pharmacy. GFR 58
Start Eliquis 10 mg twice a day for the first week then decrease to 5 mg twice a day thereafter
Not sure whether she would require lifelong anticoagulation given first event
This can be determined as outpatient. Will need to approach as unprovoked clot
May require hematology evaluation as outpatient
Patient will need radiographic follow-up regarding her pulmonary infarct.
Recommend repeating CT chest in 3 months from now.
Recommend follow-up in the next 4 to 6 weeks
To review with primary service, nursing
Hope for discharge later today
CT angiogram 08/16/2024-reviewed.
1. There are bilateral pulmonary emboli. There is embolus within the distal truncus anterior extending into the segmental right upper lobe pulmonary arteries. There are additional segmental/subsegmental pulmonary emboli within the right lower and
left upper lobes. Subsegmental pulmonary emboli within left lower lobe. There is no evidence of right heart strain.
2. There is a 2.4 cm opacity within the lateral right upper lobe favored to represent a developing pulmonary infarction.
3. Small right and trace left pleural effusions with adjacent bibasilar atelectasis.
Subjective Data
-
Date of Service:
Date of Service: August 19, 2024
Subjective:
Patient is feeling much improved. Chest discomfort improved, pleurisy improved. Presently rates it 3/10 at its peak. She took Tylenol yesterday, none since. Denies nausea, lightheadedness, abdominal pain. She has been walking in the room
without difficulty. Breathing has improved. She appears to be in good spirits
Objective Data
Data Reviewed
Vital Signs / I&O / Oxygen:
Vital Signs
Temp Pulse Resp BP Pulse Ox
97.3 F 64 18 90/56 96
08/19/24 03:23 08/19/24 03:23 08/19/24 03:23 08/19/24 03:23 08/19/24 03:23
Intake and Output
08/18/24 08/19/24 08/20/24
06:59 06:59 06:59
Intake Total 960 / 960 1140 / 1140
Balance 960 / 960 1140 / 1140
SaO2 96
Nasal Cannula flow liters per 2
minute
Physical Exam
General: Comfortable
HEENT: Normocephalic, Anicteric and Moist Mucous Membranes
Cardiovascular: S1-S2, Regular Rhythm, Murmur (n) and Rub (n)
Respiratory: Wheeze (n), Crackles (n), Rhonchi (n) and Non-Labored Respirations
GI: Soft, Non Distended and Non Tender
Neurology: Awake, Alert and No Motor Deficits
Skin: Cyanosis (n), Jaundice (n) and Rash (n)
Labs/Micro/Reports
Lab Data
08/19/24 06:27
08/19/24 06:27
Laboratory Results
08/18/24 08/18/24 08/19/24
10:08 18:37 01:59
APTT 48.0 H 192.7 H* 106.3 H
08/19/24
07:40
APTT 93.9 H
[2024-08-19 11:00] VITALS: BP 127/78
[2024-08-19] MEDS: CRESTOR 5 MG PO (11:28)
[2024-08-19] MEDS: NORVASC 2.5 MG PO (11:28)
[2024-08-19] MEDS: ELIQUIS 10 MG PO (11:28)
--- NOTE | 2024-08-19 12:53 | W.PN.HOSP.TC ---
Today's Communication/Plan
-
dc
Assessment / Plan
Assessment / Plan
yo F with PMHX of HLD, HTN, JUANY, bipolar sent from PCP with elevated ddimer drawn due to 2 week of chest pain uder R rib cage on inhale and found bilateral PE with 2.4cm opacity in RUL concerning for lung infarction. No further complications seen on
follow up imaging. Medically stable for d/c home with referrals to help desk intern and pulm. CM provided coupon for Eliquis. Repeated home O2 assessment on the day of d/c did not show hypoxia on RA on ambulation. Pain decreased as per patient
A/P:
#Pleurisy 2/2 Acute unprovoked bilateral PE and LLE acute DVT
#Acute hypoxic respiratory insufficiency - resolved
Heparin drip for 24-48h then DOAC
Echo: Normal left ventricular size, wall thickness and systolic function. No regional wall motion abnormalities are seen. LV ejection fraction is 55-60% by visual assessment. Normal diastolic function. Normal right ventricular size and function.
No significant valvular disease.
Pulm consult: ouptatient follow up
Patient is up-to day on colonoscopy, PAP and mammogram without acute findings as per patient words
Possibly needs indefinite anticoagulation
will need home O2 - CM notified
EKG without acute ischemia, trop WNL
Hematology referral provided for outpatient hypercoagulability w/u
#Chronic minimal alk.phos elevation
since [address] - no significant biliary pathology, possibly 2/2 sludge in gall bladder
#Hepatic cyst
#Splenule
no follow up advised
#Bipolar d/o
#HLD
#Essential HTN
JUANY
cont come meds
DVT ppx hep drip
Full code
I have spent at least 36 min reviewing chart, test results, communication with consultants and providing direct patient care
Anticipated Discharge: Today
Subjective/Interval History
-
Date of Service: August 19, 2024
Objective Data
-
Labs:
Laboratory Results
08/19/24 08/19/24 08/19/24
01:59 06:27 07:40
WBC 6.8
Hgb 12.2
Hct 37.5
Plt Count 190
APTT 106.3 H 93.9 H
Sodium 145
Potassium 4.2
Chloride 108 H
Carbon Dioxide 26
BUN 12
Creatinine 1.1 H
Glucose 112 H
Calcium 8.8
Total Bilirubin 0.3
AST 23
ALT 22
Alkaline Phosphatase 130 H
Vital Signs:
Vital Signs
Temp Pulse Resp BP Pulse Ox
98.5 F 68 18 127/78 95
08/19/24 11:00 08/19/24 11:00 08/19/24 11:00 08/19/24 11:00 08/19/24 11:00
I&O
08/18/24 08/19/24 08/20/24
06:59 06:59 06:59
Intake Total 960 / 960 1140 / 1140
Balance 960 / 960 1140 / 1140
Review of Systems
-
History Source: Patient
All other systems: Reviewed and negative
Physical Exam
-
General: Well Developed, Well Nourished and No Apparent Distress
Neuro: Awake, Alert and Oriented
Psych: Calm
--- NOTE | 2024-08-19 12:56 | CM ---
Addendum entered by Laura Nash 08/19/24 14:20:
Patients local [facility] does not have Eliquis until Thursday, per [facility], [place] does have medication in stock, TT to Hospitalist who will resend medications. Patient and seen bedside, agreeable to medications to be sent to to [facility] [place].
Original Note:
CM reviewed chart, patient seen bedside, per ambulatory/respiratory assessment, patient does not require home O2. Patient previously provided with Yossi carranza. Patient reports her will provide transportation home. CM will continue to
follow for all discharge planning needs.
Plan; home no needs.
--- NOTE | 2024-08-19 12:58 | W.DCSUMMARY ---
Discharge Summary
Discharge Data
Date of Admission: 08/16/24
Date of Discharge: 08/19/24
-
Pending Results: No
Hospital Course
63yo F with PMHX of HLD, HTN, JUANY, bipolar sent from PCP with elevated ddimer drawn due to 2 week of chest pain uder R rib cage on inhale and found bilateral PE with 2.4cm opacity in RUL concerning for lung infarction. No further complications seen
on follow up imaging. Medically stable for d/c home with referrals to maternity floor supervisor and pulm. CM provided coupon for Eliquis. Repeated home O2 assessment on the day of d/c did not show hypoxia on RA on ambulation. Pain decreased as per patient
I have spent at least 36 min reviewing chart, test results, communication with consultants and providing direct patient care
patient was managed for:
#Pleurisy 2/2 Acute unprovoked bilateral PE and LLE acute DVT
#Acute hypoxic respiratory insufficiency - resolved
#Chronic minimal alk.phos elevation
#Hepatic cyst
#Splenule
#Bipolar d/o
#HLD
#Essential HTN
Discharge Plan
-
Patient Disposition: Home (Routine Discharge)
Discharge Diagnosis/Procedures: VTE
Diet: Regular
Activity: No restrictions
Referrals:
Galileo Ayala, [Family Provider] -
Valdez Persaud MD [Active] - in four to six weeks
(six minute walk test.
May see RN DISCHARGE)
Dylan Parker MD [Active] - in one to two months (Call [phone] to schedule)
Prescriptions:
New
Eliquis DVT-PE Treat 30D Start 5 mg (74 tabs) tablets,dose pack
See Rx Instructions .ROUTE .COMPLEX Qty: 74 0RF
Rx Instructions:
take 10mg BID for 13 doses, then start 5mg BID, do not interrupt unless advised by doctor
pantoprazole 40 mg Tablet,Delayed Release (Dr/Ec)
40 mg PO DAILY Qty: 30 0RF
oxycodone 5 mg Tablet
5 mg PO Q4HPRN PRN (Reason: moderate pain) Qty: 10 0RF
Continued
venlafaxine 150 MG capsule,extended release 24hr
150 mg PO DAILY
quetiapine 200 mg Tablet
200 mg PO HS
Rx Instructions:
take with 50mg for total of 250mg
amlodipine 2.5 mg Tablet
2.5 mg PO DAILY
acetaminophen [Tylenol Extra Strength] 500 mg Tablet
1,000 mg PO Q6HPRN PRN (Reason: mild pain)
rosuvastatin 5 mg Tablet
5 mg PO DAILY
quetiapine 50 mg Tablet
50 mg PO HS
Rx Instructions:
take with 200mg for total of 250mg
Discharge Orders:
Discharge Patient (As Directed); Ordered 08/19/24
Ordered By: Baudilio Walsh
Discharge Date and Time
Print Language: AFGHAN
[2024-08-19 15:00] VITALS: BP 123/69
== END 2024-08-19 16:07 | disposition home or self-care (01) | DRG 176 ==
LOC: 4 WEST ACU 20:17
PROVIDERS: Student in an Organized Health Care Education/Training Program; ADMITTING PHYSICIAN Internal Medicine; ATTENDING PHYSICIAN Internal Medicine; CONSULT PHYSICIAN Internal Medicine Critical Care Medicine; EMERGENCY PHYSICIAN Emergency Medicine; FAMILY PHYSICIAN Family Medicine
DX: I26.99 Other pulmonary embolism without acute cor pulmonale (principal); I82.452 Acute embolism and thrombosis of left peroneal vein; J90 Pleural effusion, not elsewhere classified; Q89.09 Congenital malformations of spleen; K76.89 Other specified diseases of liver; I10 Essential (primary) hypertension; R06.89 Other abnormalities of breathing; R09.02 Hypoxemia; F31.9 Bipolar disorder, unspecified; E78.00 Pure hypercholesterolemia, unspecified; G47.33 Obstructive sleep apnea (adult) (pediatric); Z11.52 Encounter for screening for COVID-19; Z79.899 Other long term (current) drug therapy
CPT/HCPCS: 36415; 71046; 71250; 71275; 80053; 80076; 83036; 84484; 85025; 85027; 85379; 85610; 85730; 87811; 93005; 93306; 93970; Q9967

== ENCOUNTER → 2024-09-07 15:43 | Outpatient (REF) | payer BC, SELFPAY | LOC: RAD 15:43 | PROVIDERS: ATTENDING PHYSICIAN Family Medicine | DX: M79.604 Pain in right leg (principal); M79.605 Pain in left leg; I82.402 Acute embolism and thrombosis of unspecified deep veins of left lower extremity | CPT/HCPCS: 93970 ==

== ENCOUNTER → 2024-11-17 07:35 | Outpatient (REF) | payer BC, SELFPAY | LOC: RAD 07:35 | PROVIDERS: ATTENDING PHYSICIAN Nurse Practitioner Adult Health; FAMILY PHYSICIAN Family Medicine | DX: I26.94 Multiple subsegmental thrombotic pulmonary emboli without acute cor pulmonale (principal); I82.409 Acute embolism and thrombosis of unspecified deep veins of unspecified lower extremity; R79.89 Other specified abnormal findings of blood chemistry | CPT/HCPCS: 71275; 93971; Q9967 ==

== ENCOUNTER → 2025-03-09 07:28 | Outpatient (REF) | payer BC, SELFPAY ==
[2025-03-09 08:23] LABS: Hematocrit 42.1 % (37.0-47.0); Hemoglobin 14.2 g/dL (12.0-16.0); Mean Corp Hgb Conc. 33.7 g/dL (33.0-37.0); Mean Corpuscular Volume 89.6 fL (81.0-99.0); Nucleated Red Blood Cells % 0 %; Platelet Count 170 10^3/uL (130-400); Red Cell Dist. Width 12.9 % (11.5-14.5)
[2025-03-09 08:29] LABS: D-Dimer 1.96 ug/mlFEU (0.00-0.50)
[2025-03-09 09:07] LABS: ALT (SGPT) 25 U/L (0-35); AST (SGOT) 22 U/L (14-36); Albumin 4.4 g/dl (3.5-5.0); Alkaline Phosphatase 116 U/L (38-126); Blood Urea Nitrogen 17 mg/dl (7-17); Calcium 9.3 mg/dl (8.4-10.2); Carbon Dioxide 29 mmol/L (22-30); Chloride 103 mmol/L (98-107); Glucose 104 mg/dl (70-99); HDL Cholesterol 44 mg/dl; LDL Cholesterol, Calculated 121 mg/dl; Potassium 4.6 mmol/L (3.5-5.1); Sodium 141 mmol/L (135-145); Total Protein 7.8 g/dl (6.3-8.2); Very Low Density Lipoprotein 37 mg/dl (0-30); eGFR 42.01
[2025-03-09 09:16] LABS: Vitamin D, 25-OH*** 39.4 ng/mL (30-80)
[2025-03-09 09:19] LABS: TSH 3.42 uIU/ml (0.47-4.68)
[2025-03-09 09:32] LABS: Urine Character Clear (Clear)
[2025-03-09 12:09] LABS: Urine Red Blood Cell 0-2 /HPF (0-2)
== END ==
LOC: REG 07:28
PROVIDERS: ATTENDING PHYSICIAN Family Medicine
DX: Z00.00 Encounter for general adult medical examination without abnormal findings (principal); E78.2 Mixed hyperlipidemia; N18.31 Chronic kidney disease, stage 3a; I10 Essential (primary) hypertension; Z86.711 Personal history of pulmonary embolism; Z86.718 Personal history of other venous thrombosis and embolism; E55.9 Vitamin D deficiency, unspecified
CPT/HCPCS: 36415; 80053; 80061; 81003; 81015; 82306; 84443; 85025; 85379

== ENCOUNTER 2025-03-16 02:04 | Inpatient (IN) | payer BC, SELFPAY ==
[2025-03-15 21:51] VITALS: BP 170/109
[2025-03-15 23:15] LABS: Hematocrit 39.2 % (37.0-47.0); Hemoglobin 12.9 g/dL (12.0-16.0); Mean Corp Hgb Conc. 32.9 g/dL (33.0-37.0); Mean Corpuscular Volume 89.9 fL (81.0-99.0); Nucleated Red Blood Cells % 0 %; Platelet Count 172 10^3/uL (130-400); Red Cell Dist. Width 13.1 % (11.5-14.5)
[2025-03-15 23:29] LABS: D-Dimer 1.72 ug/mlFEU (0.00-0.50)
[2025-03-15 23:40] LABS: Troponin I 0.019 ng/ml
[2025-03-15 23:43] LABS: ALT (SGPT) 18 U/L (0-35); AST (SGOT) 20 U/L (14-36); Albumin 4.0 g/dl (3.5-5.0); Alkaline Phosphatase 115 U/L (38-126); Blood Urea Nitrogen 17 mg/dl (7-17); Calcium 8.9 mg/dl (8.4-10.2); Carbon Dioxide 29 mmol/L (22-30); Chloride 103 mmol/L (98-107); Glucose 114 mg/dl (70-99); Potassium 3.7 mmol/L (3.5-5.1); Sodium 136 mmol/L (135-145); Total Protein 7.4 g/dl (6.3-8.2); eGFR 50.55
--- NOTE | 2025-03-15 23:58 | ED.GENMED ---
History of Present Illness
<Maik Rudolph PA-C - Last Filed: 03/16/25 16:06>
General
Chief Complaint: Abnormal Lab Value
Source: patient
Time Seen by Provider: 03/15/25 23:12
History of Present Illness
History of Present Illness:
64 female with past medical history of unprovoked PE earlier this year, hypertension,, anxiety/depression/bipolar disorder presenting to the ER after she had outpatient blood work revealing an elevated D-dimer. Patient states that with her
career development coordinator/teacher she had decided to trial the DASHprotocol and due to the elevated D-dimer was recommended to come back to the ER for CT scan of the chest. Patient reports that she is asymptomatic. At time of her last PE she was noting some exertional
dyspnea. She is currently denying any pain, cough, hemoptysis, pleurisy or any other concerns. Currently not on any oral anticoagulation
Past History
<Maik Rudolph PA-C - Last Filed: 03/16/25 16:06>
Past History
ED Past Medical History: HTN, Hypercholesterolemia, Psychiatric (Bipolar disorder) and Other (Pulmonary embolism)
ED Past Surgical History: Orthopedic
Social History
Tobacco: Non-smoker
Alcohol: None
Drug: None
Personal:
Living: with family
Review of Systems
<Maik Rudolph PA-C - Last Filed: 03/16/25 16:06>
Review of Systems
All Other Systems: ROS reviewed and negative except as documented in HPI and ROS
Phy Exam
<Maik Rudolph PA-C - Last Filed: 03/16/25 16:06>
Physical Exam
Physical Exam:
GENERAL: Alert , in no apparent distress
HEAD: Normocephalic atraumatic
EYE: conjunctiva clear
NECK: Supple
ENT: o/p clr, mmm.
CARDIAC: Regular rate and rhythm
LUNGS: Clear breath sounds bilaterally, no acute respiratory distress, no wheezes/rales/rhonchi
NEUROLOGICAL: Alert and oriented
SKIN: Warm and dry, skin intact.
MUSCULOSKELETAL: well perfused.
PSYCH: Normal and appropriate interaction.
Scores
<Maik Rudolph PA-C - Last Filed: 03/16/25 16:06>
Heart Failure Risk
Heart Failure Risk Score: Not Applicable
Heart Score for Chest Pain Patients
STEMI patient?: Not applicable
Withdrawal Assessment of Alcohol
Withdrawal Assessment Completed?: Not applicable
Course
<Maik Rudolph PA-C - Last Filed: 03/16/25 16:06>
Orders/Labs/Results
Orders:
Orders
03/15/25 23:08
Complete Blood Count/With Diff Urgent
Comprehensive Metabolic Panel Urgent
D-Dimer Urgent
Troponin I Urgent
03/16/25
CT Chest PE Study Urgent
Reason For Exam: elevated d-dimer
03/16/25 00:45
Heparin 6,600 units IV NOW STA
Heparin 02034 Units/250 ml 25,000 units in 250 ml IV PER PROTOCOL
Weight to be used for heparin protocol in kilograms (kg):: 82
Protocol:: DVT/PE
PTT Goal Range to be used:: PTT 73 to 111 seconds
Order type:: Initial
INITIAL Infusion Dose (UNITS/KG/hr) & then follow protocol:: 18 units/kg/hr
Infusion Dose in UNITS/hr & then follow protocol (UNITS/hr):: 1,500
INFUSION RATE in mL/hr & then follow protocol (mL/hr):: 15
For DVT/PE algorithm, re-bolus for low PTT?: Yes
PTT less than or equal to 64 seconds:: Re-bolus 80 units/kg (max 10,000units). Increase by 300 units/hr
(+ 3mL/hr)
PTT 64.1 to 72.9 seconds:: Re-bolus 40 units/kg (max 5,000 units). Increase by 200 units/hr
(+ 2mL/hr)
PTT 73 to 111 seconds:: Target Range. No change in rate.
PTT 111.1 to 130.9 seconds:: Decrease rate by 200 units/hr (- 2 mL/hr)
PTT 131 to 199.9 seconds:: HOLD for 1 hr. Then decrease by 200 units/hr (- 2mL/hr)
PTT greater than or equal to 200 seconds:: HOLD for 2 hrs & Notify Provider. Then decrease by 300 units/hr
(- 3mL/hr)
Lab follow-up:: Each change, PTT q6h until 2 consecutive are therapeutic. Then
PTT daily.
03/16/25 00:50
Heparin 3,300 units IV PRN PRN
Heparin 6,600 units IV PRN PRN
03/16/25 01:00
Flush (0.9% Sodium Chloride) [Flush (Nss)] See Dose Instructions IV PER PROTOCOL
03/16/25 01:04
PTT Urgent
Comment: Obtain baseline before beginning heparin infusion if not already collected
03/16/25 01:51
Admit/Transfer Patient As Directed
Co-Sign Provider:
Level of Care: Inpatient admission
Assign to:: Medical/Surgical
Physician / Group: Fatimah
Diagnosis: recurrent bilateral PE
Reason for Hospitalization: bilateral PE
Expected length of stay greater than two midnights?: Yes
ELOS- Estimated Length of Stay in days: 2
I certify the patient meets the requirements for IP care: Yes
03/16/25 01:52
PRN Pain Medication Management As Directed
May give lesser potent ordered pain med per pt: Yes
preference::
Protocol:: Medication orders for pain may be administered in a
manner that supports deferring to patient preference
when the pt is:
- Requesting an ordered lesser potent pain medication.
Least to most potent pain medications are defined
as: acetaminophen < NSAID < tramadol < opioids
(morphine, oxycodone, hydromorphone).
- Requesting a lesser dose of the same medication IF
ORDERED.
- Requesting a less intrusive route of administration
if both routes are prescribed by the provider (PO <
IV).
03/16/25 01:53
Code Status As Directed
Resuscitation Status: Full Code
03/16/25 03:00
Acetaminophen [Tylenol] 650 mg PO Q4HPRN PRN
Bisacodyl [Dulcolax] 10 mg RECTAL [id number] PRN
Docusate W/Senna [Senokot-S] 1 tablet PO BIDPRN PRN
Polyethylene Glycol Powder [Miralax] 17 grams PO DAILYPRN PRN
03/16/25 03:00
Activity As Directed
Activity Level: With Assistance
Vital Signs As Directed
Frequency: Per unit guidelines
03/16/25 04:00
Quetiapine Fumarate [Seroquel] 250 mg PO HS
03/16/25 Breakfast
Regular
At Your Request: Full Participation
Does patient need a safe tray?: No
03/16/25 06:59
Basic Metabolic Panel IN AM
Complete Blood Count/No Diff IN AM
Magnesium IN AM
NT-proBNP IN AM
PTT Urgent
Troponin I IN AM
03/16/25 08:00
Amlodipine [Norvasc] 2.5 mg PO DAILY
Rosuvastatin Calcium [Crestor] 5 mg PO DAILY
Venlafaxine Extended Release [Effexor Xr] 150 mg PO DAILY
Abnormal Lab Results
03/15/25
23:08
MCHC 32.9 L g/dL
(33.0-37.0)
MPV 11.7 H fL
(7.4-10.4)
Absolute Monos (auto) 0.8 H 10^3/uL
(0.1-0.6)
D-Dimer 1.72 H ug/mlFEU
(0.00-0.50)
Creatinine 1.2 H mg/dL
(0.6-1.0)
Glucose 114 H mg/dl
(70-99)
03/15/25 23:08
03/15/25 23:08
Vital Signs
Initial and Last Documented VS:
Initial Vital Signs
Temp Pulse Resp BP Pulse Ox
98.2 F 82 20 170/109 97
03/15/25 21:51 03/15/25 21:51 03/15/25 21:51 03/15/25 21:51 03/15/25 21:51
Last Documented Vital Signs
Temp Pulse Resp BP Pulse Ox
98.1 F 80 16 117/78 95
03/16/25 07:20 03/16/25 07:20 03/16/25 07:20 03/16/25 07:20 03/16/25 07:20
<Gladys Benton, - Last Filed: 03/16/25 02:46>
Orders/Labs/Results
Orders:
Orders
03/15/25 23:08
Complete Blood Count/With Diff Urgent
Comprehensive Metabolic Panel Urgent
D-Dimer Urgent
Troponin I Urgent
03/16/25
CT Chest PE Study Urgent
Reason For Exam: elevated d-dimer
03/16/25 00:45
Heparin 6,600 units IV NOW STA
Heparin 89037 Units/250 ml 25,000 units in 250 ml IV PER PROTOCOL
Weight to be used for heparin protocol in kilograms (kg):: 82
Protocol:: DVT/PE
PTT Goal Range to be used:: PTT 73 to 111 seconds
Order type:: Initial
INITIAL Infusion Dose (UNITS/KG/hr) & then follow protocol:: 18 units/kg/hr
Infusion Dose in UNITS/hr & then follow protocol (UNITS/hr):: 1,500
INFUSION RATE in mL/hr & then follow protocol (mL/hr):: 15
For DVT/PE algorithm, re-bolus for low PTT?: Yes
PTT less than or equal to 64 seconds:: Re-bolus 80 units/kg (max 10,000units). Increase by 300 units/hr
(+ 3mL/hr)
PTT 64.1 to 72.9 seconds:: Re-bolus 40 units/kg (max 5,000 units). Increase by 200 units/hr
(+ 2mL/hr)
PTT 73 to 111 seconds:: Target Range. No change in rate.
PTT 111.1 to 130.9 seconds:: Decrease rate by 200 units/hr (- 2 mL/hr)
PTT 131 to 199.9 seconds:: HOLD for 1 hr. Then decrease by 200 units/hr (- 2mL/hr)
PTT greater than or equal to 200 seconds:: HOLD for 2 hrs & Notify Provider. Then decrease by 300 units/hr
(- 3mL/hr)
Lab follow-up:: Each change, PTT q6h until 2 consecutive are therapeutic. Then
PTT daily.
03/16/25 00:50
Heparin 3,300 units IV PRN PRN
Heparin 6,600 units IV PRN PRN
03/16/25 01:00
Flush (0.9% Sodium Chloride) [Flush (Nss)] See Dose Instructions IV PER PROTOCOL
03/16/25 01:04
PTT Urgent
Comment: Obtain baseline before beginning heparin infusion if not already collected
03/16/25 01:51
Admit/Transfer Patient As Directed
Co-Sign Provider:
Level of Care: Inpatient admission
Assign to:: Medical/Surgical
Physician / Group: Fatimah
Diagnosis: recurrent bilateral PE
Reason for Hospitalization: bilateral PE
Expected length of stay greater than two midnights?: Yes
ELOS- Estimated Length of Stay in days: 2
I certify the patient meets the requirements for IP care: Yes
03/16/25 01:52
PRN Pain Medication Management As Directed
May give lesser potent ordered pain med per pt: Yes
preference::
Protocol:: Medication orders for pain may be administered in a
manner that supports deferring to patient preference
when the pt is:
- Requesting an ordered lesser potent pain medication.
Least to most potent pain medications are defined
as: acetaminophen < NSAID < tramadol < opioids
(morphine, oxycodone, hydromorphone).
- Requesting a lesser dose of the same medication IF
ORDERED.
- Requesting a less intrusive route of administration
if both routes are prescribed by the provider (PO <
IV).
03/16/25 01:53
Code Status As Directed
Resuscitation Status: Full Code
03/16/25 03:00
Acetaminophen [Tylenol] 650 mg PO Q4HPRN PRN
Bisacodyl [Dulcolax] 10 mg RECTAL [id number] PRN
Docusate W/Senna [Senokot-S] 1 tablet PO BIDPRN PRN
Polyethylene Glycol Powder [Miralax] 17 grams PO DAILYPRN PRN
03/16/25 03:00
Activity As Directed
Activity Level: With Assistance
Vital Signs As Directed
Frequency: Per unit guidelines
03/16/25 04:00
Quetiapine Fumarate [Seroquel] 250 mg PO HS
03/16/25 Breakfast
Regular
At Your Request: Full Participation
Does patient need a safe tray?: No
03/16/25 06:59
Basic Metabolic Panel IN AM
Complete Blood Count/No Diff IN AM
Magnesium IN AM
NT-proBNP IN AM
PTT Urgent
Troponin I IN AM
03/16/25 08:00
Amlodipine [Norvasc] 2.5 mg PO DAILY
Rosuvastatin Calcium [Crestor] 5 mg PO DAILY
Venlafaxine Extended Release [Effexor Xr] 150 mg PO DAILY
Abnormal Lab Results
03/15/25
23:08
MCHC 32.9 L g/dL
(33.0-37.0)
MPV 11.7 H fL
(7.4-10.4)
Absolute Monos (auto) 0.8 H 10^3/uL
(0.1-0.6)
D-Dimer 1.72 H ug/mlFEU
(0.00-0.50)
Creatinine 1.2 H mg/dL
(0.6-1.0)
Glucose 114 H mg/dl
(70-99)
03/15/25 23:08
03/15/25 23:08
Vital Signs
Initial and Last Documented VS:
Initial Vital Signs
Temp Pulse Resp BP Pulse Ox
98.2 F 82 20 170/109 97
03/15/25 21:51 03/15/25 21:51 03/15/25 21:51 03/15/25 21:51 03/15/25 21:51
Last Documented Vital Signs
Temp Pulse Resp BP Pulse Ox
98.1 F 80 16 117/78 95
03/16/25 07:20 03/16/25 07:20 03/16/25 07:20 03/16/25 07:20 03/16/25 07:20
<Maik Rudolph PA-C - Last Filed: 03/16/25 16:06>
MDM/Problems Addressed
Differential Diagnosis Includes:
PE
ACS
Anemia
MDM/Problems Addressed:
64-year-old female presenting to the ER for evaluation after she had an elevated D-dimer on outpatient blood work, history of PE, recommended to come to the ER for CT scan of the chest. Patient asymptomatic here. Hemodynamically stable. CTA
pending. Disposition pending.
Chronic conditions affecting care: Other (Pulmonary embolism)
<Maik Rudolph PA-C - Last Filed: 03/16/25 16:06>
*Radiology
Radiology exam reviewed: radiology read reviewed
*Pulse Oximetry
SaO2: 96
Oxygen Mode of Delivery: Room air
Patient hypoxic: no
*Critical Care Note
Total Time (30-74mins, 75-104mins- exclusive of procedures): 35
comment:
Critical care statement: A total of 35 minutes of critical care time was provided for this patient. This includes management of unstable vital signs, evaluation of the patient at bedside, reviewing the patient's pertinent medical records, discussion
with consultants, review of old EKGs and review of pertinent medical records. This time with separate from time utilized to perform the aforementioned documented procedures
Data Reviewed
Review of Other/Old Records Reveals: Labs and Records
<Maik Rudolph PA-C - Last Filed: 03/16/25 16:06>
Patient Management
Discussion with other providers: Hospitalist
Escalation/DeEscalation of care consider admission/obs:
CT scan shows bilateral pulmonary emboli, no evidence for right heart strain, patient asymptomatic and her troponin is within normal limits. I did not activate a PERT alert as this was unlikely to change patient's management. Heparin ordered.
Hospitalist team notified and accepts for continued evaluation and treatment.
ED Attending Note
<Maik Rudolph PA-C - Last Filed: 03/16/25 16:06>
-
Portions of this chart may have been created with voice recognition software.� Occasional wrong word or��sound alike� substitutions may have occurred due to the inherent limitations of voice recognition software.
<Gladys Benton DO - Last Filed: 03/16/25 02:46>
ED Attending Note
Patient seen and examined by attending physician: Yes
I performed a history and physical exam of patient and discussed management with resident, I reviewed resident's note and agree with documented findings and plan of care.: Yes
ED Attending Note:
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 Placed on 3-month course of Eliquis. During routine follow-up with career development coordinator/teacher, D-dimer noted to be elevated. Sent for further evaluation. CT of the chest shows bilateral PEs
without RV strain.
Overall she has been feeling well. No chest pain or cough no shortness of breath. No leg pain or swelling.
64-year-old woman appears her stated age, bright alert, pleasant, appears in no acute distress.
Heart is regular rate and rhythm.
Lungs are clear to auscultation. No respiratory distress.
As above CT shows bilateral PEs. As such we will initiate IV heparin and admit to hospitalist service. Will require resumption of Eliquis and as this is her second, unprovoked PE, will require lifelong anticoagulation.
Discharge Plan
Departure
Patient Disposition: Admit
Date of Disposition: 03/16/25
Time of Disposition: 00:46
Presentation/result/management discussed w/ accepting MD/DO: Hospitalist
Discharge Problem:
Bilateral pulmonary embolism
Interventions
Interventions:
*Risk Screen - Suicide Last Done: 03/16/25 03:09
*General Assessment Last Done: 03/15/25 21:51
*Neglect/Abuse Screening Last Done: 03/16/25 03:33
*ED- Fall Risk Assessment Last Done: 03/16/25 03:33
*ED COVID-19 Vaccine History Last Done: 03/16/25 03:09
*ED Influenza Vaccine History Last Done: 03/16/25 03:33
*Nursing Disposition Last Done: 03/16/25 03:33
[2025-03-16] MEDS: HEPARIN 6600 UNITS IV (00:57)
[2025-03-16 01:00] VITALS: BP 158/93
[2025-03-16] MEDS: HEPARIN 25000 UNITS/250 ML IV (01:01)
--- NOTE | 2025-03-16 01:34 | HPS.HSE ---
Family Physician
-
Family Physician: Galileo Ayala
Chief Complaint
-
Elevated D-dimer
History of Present Illness
This is a 64-year-old with past medical history significant hypertension, hyperlipidemia, bipolar disorder, JUANY recently diagnosed with pulmonary embolism earlier this year after being sent by PCP with elevated D-dimer drawn after 2 weeks of chest
pain under rib cage on deep inspiration and found to have a bilateral PE at that time, treated with anticoagulation and placed on Eliquis with referral to office aide and pulmonary now coming in with elevated D-dimer again.
Patient was discharged on Eliquis and completed 3-month protocol. During this time she was being followed by hematology. She did not require hypercoagulable workup. She was given option to continue indefinite anticoagulation or to continue
anticoagulation based on the protocol that restratify is based on D-dimer age sex and hormone levels. Prior to stopping the Eliquis she had a CT scan which showed resolution of the prior blood clots. D-dimer was discontinued at the end of November.
She then had a routine evaluation and they decided to check D-dimer again which is now elevated. Patient herself denies having any chest pain shortness of breath orthopnea PND lightheadedness dizziness cough lower extremity swelling or calf
tenderness.
The emergency department she is afebrile, blood pressure was 160/93 with a pulse of 77 and she is satting 96% on room air. CBC shows a hemoglobin of 12.9 with normal WBCs and platelet. Electrolytes BUN and creatinine were normal.
Medical History
Past Medical History
Past Medical History: Reports HTN, Hypercholesterolemia and Other (Obstructive sleep apnea)
Additional Past Medical History:
History of diverticulosis
Pulmonary embolism
Past Surgical History: Reports Orthopedic
Social History
Tobacco: Non-smoker
Alcohol: None
Drug: None
Personal:
Living: With Family
Employment: Retired
Family History
Family History: Not pertinent
Allergies / Home Medications
Allergies reflects when Allergies were last updated in [facility].
Home Medications with original date entered in [facility]
Allergy/Medication List:
Allergies
Allergy/AdvReac Type Severity Reaction Status Date / Time
erythromycin base Allergy Unknown Rash Verified 08/16/24 16:53
[Erythromycin Base]
Penicillins Allergy Rash Verified 08/16/24 16:53
Home Medications
venlafaxine 150 mg capsule,extended release 24 hr 150 mg PO DAILY 03/19/19
acetaminophen 500 mg tablet (Tylenol Extra Strength) 1,000 mg PO Q6HPRN PRN mild pain 08/16/24
amlodipine 2.5 mg tablet 2.5 mg PO DAILY 08/16/24
quetiapine 200 mg tablet 200 mg PO HS 08/16/24
quetiapine 50 mg tablet 50 mg PO HS 08/16/24
rosuvastatin 5 mg tablet 5 mg PO DAILY 08/16/24
Review of Systems
-
Constitutional: Reports No Symptoms
EENT: Reports No Symptoms
Respiratory: Reports No Symptoms
Cardiac: Reports No Symptoms
Abdomen/GI: Reports No Symptoms
: Reports No Symptoms
Musculoskeletal: Reports No Symptoms
Skin: Reports No Symptoms
Neurological: Reports No Symptoms
Endocrine: Reports No Symptoms
Hematologic/Lymphatic: Reports No Symptoms
Psych: Reports No Symptoms
Physical Exam
Vital Signs
Vital Signs
Temp Pulse Resp BP Pulse Ox
98.2 F 77 19 158/93 96
03/15/25 21:51 03/16/25 01:15 03/16/25 01:15 03/16/25 01:00 03/16/25 01:15
Physical Exam
General: Well Developed, Well Nourished, No Apparent Distress and Comfortable
HEENT: NormoCephalic, Anicteric, Moist mucous membranes and Atraumatic
Respiratory: Clear
Cardiac: S1/S2 and Regular Rhythm
Breast: Deferred by me
GI: Soft, Non Tender, Non Distended and Normal Bowel Sounds
Rectal: Deferred by Provider
Genito-urinary: Deferred by me
Musculoskeletal: No Clubbing, No Cyanosis and No Edema
Skin: Warm
Neuro: AO x 3 and Nonfocal/grossly intact
Hematologic/Lymphatic: No Lymphadenopathy
Psych: Calm
Laboratory Results
-
03/15/25 23:08
03/15/25 23:08
Laboratory Results
Total Bilirubin 0.3 mg/dl (0.2-1.3) 03/15/25 23:08
AST 20 U/L (14-36) 03/15/25 23:08
ALT 18 U/L (0-35) 03/15/25 23:08
Alkaline Phosphatase 115 U/L (38-126) 03/15/25 23:08
Troponin I 0.019 ng/ml 03/15/25 23:08
Data Reviewed
-
CT Scan: Report Reviewed by me
Lab Data: Labs Reviewed by me
Old Records: Reviewed
Impression/Plan
-
IMPRESSION:
64-year-old coming in with recurrent PE after completing 3 months of Eliquis and being evaluated by hematology. She is on a protocol of restratification and had a routine D-dimer that was elevated again. She comes into the emergency department to
be evaluated for PE. She has knee and bilateral PE similar to prior but is asymptomatic. She is hemodynamically stable normal oxygen on room air. Labs are unremarkable.
PLAN:
Recurrent bilateral PE - Asymptomatic, incidental finding on routine d-dimer testing on follow up.
- Admit to med/surg
-Given second episode that is unprovoked patient will need indefinite anticoagulation
-She has been started on heparin in the emergency department, can convert to oral apixaban 10 mg twice daily tomorrow
-Monitor hemoglobin and vital signs
- check trop/pro-bnp in am. If stable patient can likely be converted to oral for early discharge
Bipolar -patient is quite stable and asymptomatic at this time
� Continue Seroquel to 50 mg just
Continue Effexor 150 mg XR daily
Hypertension
� Continue amlodipine 2.5
CODE STATUS�full code
[2025-03-16 02:00] VITALS: BP 142/94
[2025-03-16 02:22] LABS: APTT 26.5 Sec (23.4-35.0)
[2025-03-16 03:09] VITALS: BP 147/78; BMI 27.4
[2025-03-16] MEDS: SEROQUEL 250 MG PO (03:44)
[2025-03-16 07:20] VITALS: BP 117/78
[2025-03-16 07:41] LABS: Hematocrit 39.6 % (37.0-47.0); Hemoglobin 13.1 g/dL (12.0-16.0); Mean Corp Hgb Conc. 33.1 g/dL (33.0-37.0); Mean Corpuscular Volume 89.0 fL (81.0-99.0); Platelet Count 166 10^3/uL (130-400); Red Cell Dist. Width 13.1 % (11.5-14.5)
[2025-03-16 07:42] LABS: Troponin I 0.018 ng/ml
--- NOTE | 2025-03-16 07:43 | W.PN.HOSP.TC ---
Today's Communication/Plan
-
Discharge
Assessment / Plan
Assessment / Plan
Physical Exam
General: No acute distress, appears comfortable at this time.
HEENT: NormoCephalic, Anicteric, Moist mucous membranes and Atraumatic
Respiratory: Clear to auscultation b/l, stable respiratory status on room air.
Cardiac: S1/S2 and Regular Rhythm
GI: Soft, Non Tender, Non Distended and Normal Bowel Sounds
Musculoskeletal: No Clubbing, No Cyanosis and No Edema
Skin: Warm
Neuro: AO x 3 Conversant coherent
Psych: Calm
64F HTN HLD Bipolar JUANY CKD III here for recurrent PE after completing 3 months of Eliquis
PLAN:
Recurrent bilateral PE - Asymptomatic, incidental finding on routine d-dimer testing on follow up.
-CT chest appreciated Sagittal pulmonary embolism with diffuse extension bilaterally
-Given second episode that is unprovoked patient will need indefinite anticoagulation
-Started on heparin gtt in ED, noted stable overnight, converted to oral apixaban 10 mg twice daily to continue for 7 day loading dose 03/16/25 - 03/22/25 then reduce to 5 mg BID maintenance dose then on.
-H&H VSS on room air
-trop and pro-bnp well wnl
Bipolar -patient is quite stable and asymptomatic at this time
Continue Seroquel to 50 mg HS
Continue Effexor 150 mg XR daily
Hypertension
� Continue amlodipine 2.5
CODE STATUS�full code
Medically stable for discharge home with outpatient follow up recommendations.
Discussed with patient and patient's Harjeet.
Total Time Preparing Discharge __40 minutes including examination of the patient, summary of the hospital stay, instructions for continuing care to all relevant caregivers; and preparation of discharge records, prescriptions, and referral
forms if necessary.
Anticipated Discharge: Today
Subjective/Interval History
-
Date of Service: March 16, 2025
Seen and examined at bedside in no acute distress. Sitting up comfortably in bed. Reports feeling well. Denies new acute issues including SOB exertional dyspnea. Eager to go home. Harjeet present during evaluation.
Objective Data
-
Labs:
Laboratory Results
03/15/25 03/16/25 03/16/25
23:08 01:04 06:59
WBC 9.4 8.4
Hgb 12.9 13.1
Hct 39.2 39.6
Plt Count 172 166
APTT 26.5 Pending
Sodium 136 Pending
Potassium 3.7 Pending
Chloride 103 Pending
Carbon Dioxide 29 Pending
BUN 17 Pending
Creatinine 1.2 H Pending
Glucose 114 H Pending
Calcium 8.9 Pending
Total Bilirubin 0.3
AST 20
ALT 18
Alkaline Phosphatase 115
Vital Signs:
Vital Signs
Temp Pulse Resp BP Pulse Ox
98.9 F 69 18 147/78 96
03/16/25 03:09 03/16/25 03:09 03/16/25 03:09 03/16/25 03:09 03/16/25 03:09
I&O
03/15/25 03/16/25 03/17/25
06:59 06:59 06:59
Intake Total 480 / 480
Balance 480 / 480
[2025-03-16 08:22] LABS: APTT > 200 Sec (23.4-35.0)
[2025-03-16 08:23] LABS: Blood Urea Nitrogen 14 mg/dl (7-17); Calcium 8.7 mg/dl (8.4-10.2); Carbon Dioxide 28 mmol/L (22-30); Chloride 106 mmol/L (98-107); Estimated Creatinine Clearance 52 ml/min; Glucose 100 mg/dl (70-99); Magnesium 2.1 mg/dl (1.6-2.3); Potassium 3.7 mmol/L (3.5-5.1); Sodium 137 mmol/L (135-145); eGFR 56.11
[2025-03-16] MEDS: NORVASC 2.5 MG PO (08:45)
[2025-03-16] MEDS: CRESTOR 5 MG PO (08:45)
[2025-03-16] MEDS: EFFEXOR XR 150 MG PO (08:45)
[2025-03-16] MEDS: ELIQUIS 10 MG PO (11:41)
--- NOTE | 2025-03-16 11:44 | PTCARENOTE ---
Eliquis administered and heparin drip discontinued per MD orders.
--- NOTE | 2025-03-16 14:10 | CM ---
Addendum entered by Gail Acevedo 03/16/25 14:22:
Pt is discharged
Original Note:
IA completed. Independent in ADLs and IADLs. Lives with her spouse in a 2 story home with 6 steps at the entrance. Full BR on the second floor, with 13 steps to the 2nd floor. No hx of DME, HH, SNF, home o2. No insecurities identified. Confirmed
PCP, RX, insurance and drug coverage. PT is anticipating discharge today. will transport her home at the time of discharge.
Plan: DC to home with no needs
--- NOTE | 2025-03-16 14:18 | W.DCSUMMARY ---
Discharge Summary
Discharge Data
Date of Admission: 03/16/25
Date of Discharge: 03/16/25
-
Pending Results: No
Discharge Plan
-
Patient Disposition: Home (Routine Discharge)
Discharge Diagnosis/Procedures: Recurrent Pulmonary Embolism
Condition: Fair
Diet: Regular
Activity: As tolerated
Driving Restrictions: As prior to admission
Bathing Restrictions: None
Activity Restrictions/Additional Instructions:
Follow up with primary care provider in 1 week of discharge. In 2-4 weeks of discharge, follow up with Pulmonology and Hematology.
Eliquis prescribed for Pulmonary Embolism. Continue with loading dose Eliquis 10 mg (2 tabs) twice a day for total 7 days 03/16/25 to 03/22/25. Then reduce to maintenance dose 5 mg (1 tab) twice a day from then on.
Please take medications as prescribed/recommended and follow up with primary care provider and/or other healthcare provider involved in your care for refills and/or further adjustment to your medication regimen as necessary.
Referrals:
Galileo Ayala DO [Family Provider, Family Practice] - in one week
Valdez Persaud MD [Active, Pulmonary Medicine] - in two to four weeks
Dylan Parker MD [Active, Hematology / Oncology] - in two to four weeks
Prescriptions:
New
Eliquis 5 mg tablet
5 mg PO BID Qty: 74 0RF
Rx Instructions:
Take 10 mg (2 tabs) twice a day 03/16-03/22
then reduce to 5 mg twice a day then on.
Continued
venlafaxine 150 MG capsule,extended release 24hr
150 mg PO DAILY
quetiapine 200 mg Tablet
200 mg PO HS
Rx Instructions:
take with 50mg for total of 250mg
amlodipine 2.5 mg Tablet
2.5 mg PO DAILY
acetaminophen [Tylenol Extra Strength] 500 mg Tablet
1,000 mg PO Q6HPRN PRN (Reason: mild pain)
rosuvastatin 5 mg Tablet
5 mg PO DAILY
quetiapine 50 mg Tablet
50 mg PO HS
Rx Instructions:
take with 200mg for total of 250mg
Discontinued
Eliquis DVT-PE Treat 30D Start 5 mg (74 tabs) tablets,dose pack
See Rx Instructions .ROUTE .COMPLEX Qty: 74 0RF
Rx Instructions:
take 10mg BID for 13 doses, then start 5mg BID, do not interrupt unless advised by doctor
Discharge Orders:
Discharge Patient (As Directed); Ordered 03/16/25
Ordered By: Mary Lou Modi
Discharge Date and Time
Print Language: MALAY
--- NOTE | 2025-03-16 14:55 | PTCARENOTE ---
IV discontinued. Discharge paperwork printed and reviewed with patient who verbalized understanding. Pt transported off the floor via wheelchair with all belongings from the room by volunteer.
== END 2025-03-16 14:52 | disposition home or self-care (01) | DRG 176 ==
LOC: 4 EAST ACU 02:04
PROVIDERS: Physician Assistant Medical; ADMITTING PHYSICIAN Internal Medicine; ATTENDING PHYSICIAN Internal Medicine; EMERGENCY PHYSICIAN Emergency Medicine; FAMILY PHYSICIAN Family Medicine
DX: I26.99 Other pulmonary embolism without acute cor pulmonale (principal); F31.9 Bipolar disorder, unspecified; I10 Essential (primary) hypertension; Z79.01 Long term (current) use of anticoagulants; Z86.711 Personal history of pulmonary embolism
CPT/HCPCS: 71275; 80048; 80053; 83735; 83880; 84484; 85025; 85027; 85379; 85730; 96374; 96376; 99285; Q9967

== ENCOUNTER → 2025-04-04 13:38 | Outpatient (REF) | payer BC, SELFPAY | LOC: RAD 13:38 | PROVIDERS: ATTENDING PHYSICIAN Family Medicine | DX: I26.99 Other pulmonary embolism without acute cor pulmonale (principal); M79.89 Other specified soft tissue disorders | CPT/HCPCS: 93970 ==

== ENCOUNTER → 2025-04-17 10:41 | Outpatient (REF) | payer BC, SELFPAY | LOC: WDC 10:41 | PROVIDERS: ATTENDING PHYSICIAN Family Medicine | DX: Z12.31 Encounter for screening mammogram for malignant neoplasm of breast (principal) | CPT/HCPCS: 77063; 77067 ==